=== PATIENT | female | born 2000 | race Two or more races ===

== ENCOUNTER 2024-03-27 18:23 | Emergency (ER) | payer OTHER ==
[~2024-03-27] VITALS: Ht 154.9 cm; Wt 82.7 kg
[2024-03-27 18:25] VITALS: BP 118/73; PULSE 78; RESP 18; TEMP 98; O2SAT 99
[2024-03-27] MEDS: LIDOCAINE/PF 1% 2 ML VIAL IM ONE (20:30)
[2024-03-27] MEDS: CefTRIAXone SODIUM 1 GM/VIAL IM ONE (20:30)
[2024-03-27] MEDS: DOXYCYCLINE HYCLATE 100 MG TABLET PO ONE (20:31)
[2024-03-27] MEDS: ACETAMINOPHEN/CODEINE 300-30 MG TABLET PO ONE (20:31)
[2024-03-27] MEDS: IBUPROFEN 600 MG TABLET PO ONE (20:32)
[2024-03-27] MEDS ORDERED: IBUP-1554 PO (20:52)
[2024-03-27] MEDS ORDERED: CEPH-558 PO (20:52)
[2024-03-27] MEDS ORDERED: DOXY-354 PO (20:52)
[2024-03-27] MEDS ORDERED: ACET-2080 PO (20:52)
== END 2024-03-27 21:11 | disposition home or self-care (01) ==
LOC: EMS 18:23
DX: L03.115 Cellulitis of right lower limb (principal)
CPT/HCPCS: 99284; 96372; J0696; J3490